=== PATIENT | female | born 1945 | race Caucasian/White ===

== ENCOUNTER 2022-11-22 17:24 | Emergency (ER) | payer MEDICARE, SELFPAY ==
[2022-11-22] VITALS (24 sets, daily range): BP systolic 98–183; BP diastolic 50–119; PULSE 85–104; RESP 8–33; TEMP 36.6; O2SAT 86–99; BMI 21.2
--- NOTE | 2022-11-22 17:33 | DI.RAD.S_ITS ---
PROCEDURE: XR HIP W PEL IF DONE RT 2V INDICATIONS: ? dislocation of hip. TECHNIQUE: AP pelvis with lateral view(s) of the right hip(s). COMPARISON: None. FINDINGS: Bones: Bilateral hip prostheses. There is a superior right femoroacetabular prosthesis dislocation. No definite periprosthetic or pelvic fractures. Soft tissues: The visualized bowel gas pattern is normal. No suspicious soft tissue calcifications. IMPRESSION: Superior right femoroacetabular prosthesis dislocation. Dictated by: Grisel Centeno M.D. on 11/22/2022 at 18:14 Approved by: Grisel Centeno M.D. on 11/22/2022 at 18:16
[2022-11-22] MEDS: ONDANSETRON 4 MG/2 ML INJ IV (17:55)
[2022-11-22] MEDS: MORPHINE 4 MG/ML INJ IV (17:56)
--- NOTE | 2022-11-22 18:49 | ED_ITS ---
HPI - Extremity Injury (Lower) General Chief Complaint: Extremity Injury, Lower Stated Complaint: Rt Hip Dislocation Time Seen by Provider: 11/22/22 18:06 Source: patient and EMS Mode of arrival: EMS History of Present Illness HPI Narrative: 77-year-old female former smoker with prior hip surgeries presents by EMS for evaluation of right hip pain and concern for dislocation. She states that she was stepping up into the van and leaning forward and felt her right hip pop and give way causing her to fall to the ground. She denies any head neck or back pain. She has no numbness, tingling or weakness. She has sufficient pain that she can not stand or weightbear. She is had prior dislocations and states this feels the same. She denies any chest pain or shortness of breath. She denies nausea, vomiting or diarrhea Related Data Allergies Allergy/AdvReac Type Severity Reaction Status Date / Time Penicillins Allergy Severe Anaphylaxis Verified 11/22/22 17:35 Review of Systems Review of Systems Narrative: GENERAL: Denies chills, fatigue, malaise, fever, sweats. HEENT: Denies sinus pain, ear pain, sore throat, difficulty swallowing, dizziness. RESPIRATORY: Denies dyspnea, cough, wheezing, hemoptysis, sputum. CARDIOVASCULAR: Denies chest pain, palpitations, orthopnea, edema, GASTROINTESTINAL: Denies nausea, vomiting, abdominal pain, diarrhea, constipation, melena. : Denies dysuria, frequency, incontinence, hematuria, urinary retention. MUSCULOSKELETAL: See HPI SKIN: Denies rash, skin lesions, or other NEUROLOGIC: Denies weakness, headache, numbness, change in speech, confusion, seizures, incoordination. PSYCHIATRIC: No concerning psychosocial issues. 12 point review of systems is negative except for those stated above Patient History Social History Smoking Status: Former smoker Smoking Status: Former smoker alcohol intake frequency: 0-2 drinks per day Substance Use Type: does not use Exam Narrative Exam Narrative: GENERAL: [77] year old patient appears stated age. Well-developed patient, in mild distress. HEAD: Atraumatic. Normocephalic. EYES: Pupils equal round and reactive. Extraocular motions intact. No scleral icterus. No injection or drainage. ENT: Nose without bleeding, purulent drainage. Throat without erythema, tonsillar hypertrophy or exudate. Airway patent. NECK: Trachea midline. Non tender CARDIOVASCULAR: Regular rate and rhythm without murmurs, gallops, or rubs. RESPIRATORY: Clear to auscultation. Breath sounds equal bilaterally. No wheezes, rales, or rhonchi. GASTROINTESTINAL: Abdomen soft, non-tender, nondistended. EXTREMITIES: Right hip pain with shortening and internal rotation, closed, isolated and neurovascularly intact BACK: Nontender without deformity or crepitance. No flank tenderness. NEURO: AOx3. SKIN: No rash or erythema of visible areas Initial Vital Signs Initial Vital Signs: Vital Signs Temperature 98 F 11/22/22 17:27 Pulse Rate 91 H 11/22/22 17:27 Respiratory Rate 16 11/22/22 17:27 Blood Pressure 120/79 11/22/22 17:27 Pulse Oximetry 99 11/22/22 17:27 Oxygen Delivery Method Room Air 11/22/22 17:27 Procedures Orthopedic Joint Reduction Joint #1: Time Out Performed: Yes Side: right Joint Reduction Location: hip Analgesia: procedural sedation Technique used: traction/counter-traction Post-reduction neuro exam: intact Post-reduction vascular: intact Post Reduction X-Ray Obtained: Yes Post Reduction X-Ray Results: reduced Patient Tolerated Procedure: Well Procedural Sedation Consent signed: Yes Time out performed: Yes Indication: fracture/dislocation reduction ASA Class: II Mallampati Airway Classification: Class II Time of Last PO Intake: 17:00 Preparation: campus monitor applied, pulse oximeter, capnometry used, supplemental O2 applied, suction/airway equipment at bedside and IV secured IV Propofol dose (mg): 80 Intraservice time/total sedation time (min): 12 ED Sedation Level: Moderate (Concious) Patient Tolerated Procedure: Well Complications: hypoxia Interventions: Airway repositioned Course Orders Ordered: Discontinued Medications Morphine Sulfate (Morphine 4 Mg/Ml Inj) 4 mg IV NOW ONE Stop: 11/22/22 17:53 Last Admin: 11/22/22 17:56 Dose: 4 mg Documented By: [facility] Ondansetron HCl (Ondansetron 4 Mg/2 Ml Inj) 4 mg IV NOW ONE Stop: 11/22/22 17:53 Last Admin: 11/22/22 17:55 Dose: 4 mg Documented By: NELLI Propofol (Propofol 200 Mg/20 Ml Vial) 100 mg IV NOW ONE Stop: 11/22/22 18:35 Last Admin: 11/22/22 18:54 Dose: 80 mg Documented By: [facility] Vital Signs Vital signs: Vital Signs - 8 hr 11/22/22 17:27 11/22/22 18:46 Temperature 98 F Pulse Rate 91 H 101 H Respiratory Rate 16 26 H Blood Pressure 120/79 Pulse Oximetry 99 Oxygen Delivery Method Room Air MDM - Extremity Injury (Lower) Lab Data Labs: Point of Care Testing Test Results Not applicable MDM Narrative Medical decision making narrative: [77] year old patient presents with right hip pain Multiple etiologies for patient's symptoms considered including, but not limited to: [Dislocation, fracture versus other] No Prior Charts reviewed in our EMR as none are available Primary Historian: patient Imaging reviewed: His initial x-ray demonstrates anterior dislocation, follow- up demonstrates anatomic reduction Patient's symptoms improved over duration of stay with above-stated therapies. Findings and discharge diagnosis discussed with patient/family followed by verbalization of understanding Return precautions discussed with patient/family whom verbalize understanding of diagnosis and plan Discharge Plan Departure Patient Disposition: Home Clinical Impression: Dislocation, hip, anterior Qualifiers: Encounter type: initial encounter Laterality: right Qualified Code(s): S73.034A - Other anterior dislocation of right hip, initial encounter Instructions: DI for Hip Dislocation -- Adult Activity Restrictions/Additional Instructions: *You have been diagnosed with [right hip dislocation, successfully reduced with the use of propofol ] *What to do: *Please continue to take your regular medications as directed. [ ] New medication prescriptions sent to your pharmacy: [ ] [ ] New medication written as a paper prescription [ ] No new medications given *Please follow up with your primary care provider in 2-3 days, call for an ousmane ointment. Let them know you were seen in the Emergency Department and that we ask that you be seen in follow up. We will electronically transmit a record of today's note if your PCP is in our system *Be careful when flexing your hip as this is the most common mechanism of a hip becoming dislocated. Pay particular attention when getting into and out of chairs, on/off the toilet, etc. *Return to Emergency Department if you should have any new, worsening or concerning symptoms, such as [fever greater than 101 F, shaking chills, worsening pain, persistent vomiting or other bothersome symptoms] Referrals: Vera Cordero MD [Physician] - Stand Alone Forms: Patient Portal/API
[2022-11-22] MEDS: propofoL 200 MG/20 ML VIAL 100 MG IV (18:54)
--- NOTE | 2022-11-22 18:58 | DI.RAD.S_ITS ---
PROCEDURE: XR HIP RT 1V INDICATIONS: post-reduction TECHNIQUE: Single views of the hip were acquired. COMPARISON: [facility], CR, XR HIP W PEL IF DONE RT 2V, 11/22/2022, 17:31. FINDINGS: Bones: Successful reduction of right prosthesis dislocation. There are no periprosthetic or visible pelvic fractures on the single given view. Soft tissues: No suspicious soft tissue calcifications or masses. IMPRESSION: Successful reduction of right femoroacetabular prosthesis dislocation. Dictated by: Grisel Centeno M.D. on 11/22/2022 at 19:37 Approved by: Grisel Centeno M.D. on 11/22/2022 at 19:38
--- NOTE | 2022-11-22 19:09 | PC.NURSE ---
1852 RT placed patient on 2LNC in preparation for reduction. Dr Wang medicated patient with 50mg propofol at 1853, patient resistant to reduction, additional 30mg of propofol administered 1854. Reduction completed, patient tolerated well. CMS intact. ANSON called for reduction xray. patient placed on 4L NC by RT at 1856 due to shallow breaths and decrease in oxygen level, patient airway repositioned. Tolerated airway repositioning well. Patient responsive to verbal stimulation and slowly arousing.
--- NOTE | 2022-11-22 19:26 | PC.NURSE ---
patient reports stepping up into van when she felt her right hip pop out of socket. Patient states she has had this happen twice in the past. Typically reduces in ER with no difficulty. Patient was medicated by EMS and presents with fair amount of discomfort still, patient remains in position of comfort. CMS intact, obvious shortening and rotation noted.
== END 2022-11-22 20:10 | disposition home or self-care (01) ==
PROVIDERS: Emergency Provider Emergency Medicine
DX: S73.034A Other anterior dislocation of right hip, initial encounter (principal); R09.02 Hypoxemia; W18.30XA Fall on same level, unspecified, initial encounter
CPT/HCPCS: 27250; 73501; 73502; 96374; 96375; 99152; 99285; 99291; J2270; J2405; J2704